=== PATIENT | male | born 2000 | race Two or more races ===

== ENCOUNTER 2021-12-28 07:07 | Emergency (ER) | payer MEDICAID ==
[~2021-12-28] VITALS: Ht 185.4 cm; Wt 65.8 kg
[2021-12-28] MEDS ORDERED: DEXAMETHASONE SOD PHOSPHATE 10 MG/ML VIAL ONE (07:48)
[2021-12-28] MEDS ORDERED: KETOROLAC TROMETHAMINE INJ 30 MG/ML VIAL ONE (07:48)
[2021-12-28] MEDS ORDERED: KETOROLAC TROMETHAMINE INJ 60 MG/2 ML VIAL IM ONE (08:00)
[2021-12-28] MEDS ORDERED: DEXAMETHASONE SOD PHOSPHATE 10 MG/ML VIAL IM ONE (08:00)
--- NOTE | 2021-12-28 08:12 | NUR ---
COVID AND FUI AND RAPID STRIP SENT TO LAB
[2021-12-28] MEDS ORDERED: AMOX125S10 GT (08:30)
--- NOTE | 2021-12-28 08:44 | NUR ---
Patient discharged to home in stable condition. Written and verbal after care instructions given. Patient verbalizes understanding of instruction.
[2021-12-28 08:45] VITALS: BP 110/62
== END 2021-12-28 08:47 | disposition home or self-care (01) ==
LOC: ER 07:20
DX: J02.0 Streptococcal pharyngitis (principal); Z20.822 Contact with and (suspected) exposure to COVID-19
CPT/HCPCS: 99284; 87426; 96372 ×2; 87804; 87420; J1100; J1885; C9803